=== PATIENT | female | born 1980 | race Caucasian/White ===

== ENCOUNTER 2017-01-04 13:18 | Emergency (ER) | payer OTHER | END 2017-01-04 14:30 | disposition home or self-care (01) | LOC: ER 13:18 | DX: S00.93XA Contusion of unspecified part of head, initial encounter (principal); W19.XXXA Unspecified fall, initial encounter; Y92.009 Unspecified place in unspecified non-institutional (private) residence as the place of occurrence of the external cause; F17.210 Nicotine dependence, cigarettes, uncomplicated; Z88.1 Allergy status to other antibiotic agents | CPT/HCPCS: 70450; 96372; 99283-25 ==